=== PATIENT | female | born 1980 | race American Indian/Alaskan Native ===

== ENCOUNTER 2017-08-18 22:01 | Emergency (ER) | payer SELFPAY ==
--- NOTE | 2017-08-18 22:37 | ED PDOC ---
Arrival/HPI - General Chief Complaint: Eye Problem Time Seen by Provider: 08/18/17 22:26 Historian: Patient - History of Present Illness Narrative History of Present Illness (Text): 08/18/17 22:37 Sophia Arreola is a 37 year old female who presents to the Emergency department complaining of left eye irritation with associated redness tonight. Patient denies any recent trauma/injury. Patient notes she regularly wears contact lenses. Patient denies any vision changes, headache, dizziness, fever, chills, or any other complaints. Time/Duration: Other (tonight) Symptom Onset: Gradual Symptom Course: Unchanged Activities at Onset: Light Context: Home Past Medical History - Provider Review Nursing Documentation Reviewed: Yes - Psychiatric Hx Substance Use: No Family/Social History - Physician Review Nursing Documentation Reviewed: Yes Family/Social History: Unknown Family HX Smoking Status: Light Smoker < 10 Cigarettes Daily Hx Alcohol Use: Yes Frequency of alcohol use: Few days per week Hx Substance Use: No Allergies/Home Meds Allergies/Adverse Reactions: Allergies No Known Allergies Allergy (Verified 08/18/17 22:28) Review of Systems - Physician Review All systems were reviewed & negative as marked: Yes - Review of Systems Constitutional: Normal. absent: Fevers Eyes: Other (+left eye redness/irritation) ENT: Normal Respiratory: Normal Cardiovascular: Normal Gastrointestinal: Normal. absent: Abdominal Pain, Diarrhea, Nausea, Vomiting Genitourinary Female: Normal Musculoskeletal: Normal. absent: Back Pain, Neck Pain Skin: Normal Neurological: Normal. absent: Headache, Dizziness Endocrine: Normal Hemo/Lymphatic: Normal Psychiatric: Normal Physical Exam Vital Signs Reviewed: Yes Vital Signs Temp Pulse Resp BP Pulse Ox 08/18/17 22:28 98.8 F 98 H 16 118/84 98 Temperature: Afebrile Blood Pressure: Normal Pulse: Regular Respiratory Rate: Normal Appearance: Positive for: Well-Appearing, Non-Toxic, Comfortable Pain Distress: None Mental Status: Positive for: Alert and Oriented X 3 - Systems Exam Head: Present: Atraumatic, Normocephalic Pupils: Present: PERRL Extroacular Muscles: Present: EOMI Conjunctiva: Present: Injected (Left conjuncitivitis, Punctate left corneal abrasion at 11:00 with fluorescein uptake) Mouth: Present: Moist Mucous Membranes Neck: Present: Normal Range of Motion. No: Meningeal Signs, MIDLINE TENDERNESS Respiratory/Chest: Present: Clear to Auscultation, Good Air Exchange. No: Respiratory Distress, Accessory Muscle Use Cardiovascular: Present: Regular Rate and Rhythm, Normal S1, S2. No: Murmurs Upper Extremity: Present: Normal Inspection. No: Cyanosis, Edema Lower Extremity: Present: Normal Inspection. No: Edema Neurological: Present: GCS=15, CN II-XII Intact, Speech Normal Skin: Present: Warm, Dry, Normal Color. No: Rashes Psychiatric: Present: Alert, Oriented x 3, Normal Insight, Normal Concentration Medical Decision Making ED Course and Treatment: 08/18/17 22:37 Impression: 37 year old female complaining of left eye irritation/redness tonight. Differential Diagnosis included but are not limited to: conjunctivitis vs. corneal abrasion Plan: -- Tobrex -- Reassess and disposition Progress Notes: Tetracaine and fluorescein were placed in left eye. Punctate left corneal abrasion noted at 11:00 with fluorescein uptake. 08/18/17 22:40 On re-evaluation, patient is well-appearing, in no acute distress. I have discussed the results and plan with the patient, who expresses understanding. Patient in agreement with plan to be discharged home. Patient is stable for discharge. Patient was instructed to follow up with physician or return if symptoms worsen or new concerning symptoms arise. - Medication Orders Current Medication Orders: Discontinued Medications Tobramycin Sulfate (Tobrex 0.3% Ophth Oint) 1 appl OS ONCE ONE Stop: 08/18/17 22:39 Last Admin: 08/18/17 22:45 Dose: 2 drop - Scribe Statement The provider has reviewed the documentation as recorded by the Chaz Lopez Provider Scribe Attestation: All medical record entries made by the Scribrayray were at my direction and personally dictated by me. I have reviewed the chart and agree that the record accurately reflects my personal performance of the history, physical exam, medical decision making, and the department course for this patient. I have also personally directed, reviewed, and agree with the discharge instructions and disposition. Disposition/Present on Arrival - Present on Arrival Any Indicators Present on Arrival: No History of DVT/PE: No History of Uncontrolled Diabetes: No Urinary Catheter: No History of Decub. Ulcer: No History Surgical Site Infection Following: None - Disposition Have Diagnosis and Disposition been Completed?: Yes Diagnosis: Conjunctivitis, Corneal abrasion Disposition: HOME/ ROUTINE Disposition Time: 22:40 Patient Plan: Discharge Condition: GOOD Discharge Instructions (ExitCare): Corneal Abrasion (ED), Conjunctivitis (ED) Additional Instructions: Avoid placement of your contact lenses/use medication as prescribed/follow up with your opthalmologist this week Prescriptions: Tobramycin 0.3% [Tobrex 0.3% Ophth Soln] 2 drop OS QID #1 bottle Referrals: Tyson Mitchell [Staff Provider] - Follow up with primary Forms: [facility] (Thai), WORK NOTE
[2017-08-18 22:38] VITALS: BP 118/84; PULSE 98; RESP 16; TEMP 98.8; O2SAT 98
[2017-08-18] MEDS ORDERED: Tobramycin 0.3% OPH OINT OS ONE (22:38)
== END 2017-08-18 23:00 | disposition home or self-care (01) ==
LOC: ED 22:01
DX: H10.9 Unspecified conjunctivitis (principal); S05.02XA Injury of conjunctiva and corneal abrasion without foreign body, left eye, initial encounter; X58.XXXA Exposure to other specified factors, initial encounter; F17.210 Nicotine dependence, cigarettes, uncomplicated